=== PATIENT | female | born 1970 ===

== ENCOUNTER → 2018-07-13 06:00 | Outpatient (CLI) | payer OTHER | END | disposition home or self-care (01) | LOC: LAB 06:00 → EDSTATUS 07-14 13:50 → CIR.AMB 07-14 19:30 → EDSTATUS 07-17 12:08 → SURH 07-17 14:02 | DX: Z01.812 Encounter for preprocedural laboratory examination (principal); Z01.810 Encounter for preprocedural cardiovascular examination ==